=== PATIENT | male | born 2000 | race Caucasian/White ===

== ENCOUNTER 2018-05-28 21:25 | Emergency (ER) | payer OTHER ==
[~2018-05-28] VITALS: Ht 185.4 cm; Wt 85.2 kg
[2018-05-28 21:27] VITALS: BP 117/75
[2018-05-28] MEDS ORDERED: BACITRACIN ZINC OINT 500U/GM, 0.9 GM ONE (21:52)
== END 2018-05-28 22:23 | disposition home or self-care (01) ==
LOC: ED 22:05
DX: S01.81XA Laceration without foreign body of other part of head, initial encounter (principal); W45.8XXA Other foreign body or object entering through skin, initial encounter; Y93.62 Activity, american flag or touch football; Y92.321 Football field as the place of occurrence of the external cause; Y99.8 Other external cause status
CPT/HCPCS: 99282

== ENCOUNTER 2021-03-23 | Emergency (ER) | payer OTHER ==
[~2021-03-23] VITALS: Ht 185.4 cm; Wt 92.0 kg
[2021-03-23 00:06] VITALS: BP 141/70
--- NOTE | 2021-03-23 00:27 | NUR ---
Pt states that he was drinking on Monday night for his birthday and drank a bit too much. Pt girlfriend states that pt fell multiple times and hit the back of his head. Pt presents with bruising behind left ear. Pupils ADA.
== END 2021-03-23 02:34 | disposition home or self-care (01) ==
LOC: ED 02:17
DX: S09.90XA Unspecified injury of head, initial encounter (principal); W18.30XA Fall on same level, unspecified, initial encounter; Y93.89 Activity, other specified; Y92.89 Other specified places as the place of occurrence of the external cause; Y99.8 Other external cause status
CPT/HCPCS: 70450; 99284